=== PATIENT | female | born 1955 | race American Indian/Alaskan Native ===

== ENCOUNTER 2018-06-20 20:24 | Emergency (ER) | payer SELFPAY ==
[2018-06-20] MEDS ORDERED: BOOSTRIX IM ONE (20:53)
[2018-06-20] MEDS ORDERED: ceFAZolin 2 GM in NACL 0.9% 100 ML IV ONE (20:53)
[2018-06-20] MEDS ORDERED: XYLOCAINE 2% INFILTRATI ONE (20:58)
--- NOTE | 2018-06-20 20:58 | Emergency Department Report ---
HPI - General Chief Complaint: Wound/Laceration Time Seen by Provider: 06/20/18 20:50 - HPI HPI: 62-year-old female presents to the emergency department with complaint of a laceration to the left palm that occurred just prior to arrival. The patient was walking down the stairs and slipped to the bottom of the stairs and her hand went across some type of a vent while she was trying to catch herself. She thinks that the lever to open and close the event, or some portion of the vent, cut her hand. She says that the blood will spurt out if pressure is removed. She also has difficulty moving the left ring finger which she says feels numb. She has a past medical history of hypertension. She is unsure of her last tetanus vaccination. She is right-hand dominant. ED Past Medical Hx - Past Medical History Hx Hypertension: Yes - Surgical History Past Surgical History?: No - Social History Smoking Status: Current Every Day Smoker Substance Use Type: None - Medications Home Medications: Home Medications Medication Instructions Recorded Confirmed Last Taken Type HYDROcodone/APAP 5-325 [Tangier 1 each PO Q6HR PRN #12 tablet 06/20/18 Unknown Rx 5/325] Sulfamethoxazole/Trimethoprim 1 each PO BID #14 tablet 06/20/18 Unknown Rx [Bactrim DS TAB] ED Review of Systems ROS: Stated complaint: LEFT HAND LACERATION Other details as noted in HPI Comment: All other systems reviewed and negative Constitutional: denies: chills, fever Eyes: denies: eye pain, vision change ENT: denies: ear pain, throat pain Respiratory: denies: cough, shortness of breath Cardiovascular: denies: chest pain, palpitations Gastrointestinal: denies: abdominal pain, vomiting Genitourinary: denies: dysuria, discharge Musculoskeletal: arthralgia. denies: back pain Skin: denies: rash, lesions Neurological: numbness (left ring finger). denies: headache Physical Exam - Physical Exam Vital Signs: Vital Signs 06/20/18 20:31 Temperature 97.9 F Pulse Rate 78 Respiratory 20 Rate Blood Pressure 161/92 O2 Sat by Pulse 100 Oximetry Physical Exam: GENERAL: The patient is well-developed well-nourished. HEENT: Normocephalic. Atraumatic. Patient has moist mucous membranes. EYES: Extraocular motions are intact. NECK: Supple. Trachea is midline. CHEST/LUNGS: Clear to auscultation. There is no respiratory distress noted. HEART/CARDIOVASCULAR: Regular. There is no tachycardia. There is no obvious murmur. ABDOMEN: Abdomen is soft, nontender. Patient has normal bowel sounds. There is no abdominal distention. SKIN: There is a 3 cm transverse laceration to the left palm. There is Oozing of blood. No foreign body seen. NEURO: The patient is awake, alert, and oriented. The patient is cooperative. The patient has normal speech. MUSCULOSKELETAL: There is tenderness to palpation to the left palm with the patient has a laceration. The patient is unable to flex her left ring finger and the middle finger appears flexed at the PIP joint. Patient has subjective decreased sensation to the distal left ring finger. There is capillary refill less than 2 seconds and radial pulses +2 over 4 to the affected left hand and wrist. ED Course Vital Signs 06/20/18 20:31 Temperature 97.9 F Pulse Rate 78 Respiratory 20 Rate Blood Pressure 161/92 O2 Sat by Pulse 100 Oximetry - Consultations Consultation #1: 06/20/18 22:28 I spoke with the nurse practitioner on-call for the [facility] in [facility], which also does home care and hand injuries. I spoke with her regarding my suspicion of a flexor digitorum tendon laceration along with her left palm laceration. They said that the treatment plan is appropriate which includes approximation of the wound, antibiotics, updating tetanus, a splint, and outpatient follow-up. They say that they are happy to see the patient in [place] but they do not have any local [place] facility that does hand injuries. - Laceration /Wound Repair Left Hand Wound Location: upper extremity (left palm) Wound Length (cm): 3 Wound's Depth, Shape: linear Wound Explored: no foreign body removed Irrigated w/ Saline (ccs): 500 Anesthesia: 1% Lidocaine Volume Anesthetic (ccs): 7 Wound Repaired With: sutures Suture Size/Type: 5:0 Number of Sutures: 8 (Ethilon) Sterile Dressing Applied?: Yes Progress: No obvious complications from this procedure. The patient had palpable pulses and distal capillary refill with her and after the procedure. Neurovascularly intact. ED Medical Decision Making - Radiology Data Radiology results: image reviewed interpreted by me: X-ray of the left hand does not show any fractures, dislocations, foreign bodies - Medical Decision Making Patient presents with a left palmar laceration that occurred just prior to arrival. She also was unable to move the left ring finger, and given the location of the laceration, I have concern for a laceration of the flexor digitorum tendon. Patient was given local anesthesia with lidocaine without epinephrine. The area was washed out with 500 mL of normal saline. I was unable to see any obvious tendon rupture but I did not want to do too much exploration of the wound and/or hand. However no foreign body was seen. X-ray of the left hand did not show any fracture, dislocation, or any foreign body as well. The area was closed with simple interrupted sutures. The area was then cleaned, given a sterile dressing and placed in a volar splint. I spoke with the facility in [facility] that specializes in hand injuries and they agreed that this sounds like something that is safe for outpatient follow-up and discharge from the emergency department. The patient was given IV antibiotics here and tetanus booster. She will go home with antibiotics, pain medication and a referral for both an orthopedic group that specializes in hand injuries, as well as a generalized orthopedist. We had a long discussion regarding signs/symptoms of infection and other reasons to return to the closest emergency department. All of her questions were answered. The patient understands and agrees to the plan. - Differential Diagnosis hand laceration, tendon laceration, fracture, dislocation Critical Care Time: No Critical care attestation.: If time is entered above; I have spent that time in minutes in the direct care of this critically ill patient, excluding procedure time. ED Disposition Clinical Impression: Laceration of left hand Qualifiers: Encounter type: initial encounter Foreign body presence: without foreign body Qualified Code(s): S61.412A - Laceration without foreign body of left hand, initial encounter Disposition: - TO HOME OR SELFCARE Is pt being admited?: No Condition: Stable Instructions: Suture Care (ED), Laceration (ED) Additional Instructions: Please follow up with an orthopedist on Saturday. I have given you a referral for a local general orthopedist, Dr. Ryan. I have also given a referral for a orthopedic group that specializes in hand injuries, [facility]. Return to the emergency Department with any worsening of her symptoms, increased pain, new pain, skin color change to the hand, signs and sym ptoms of infection such as development of fever, discharge or pus, or surrounding redness. The sutures will have to be removed in about 7 days but used to be seen by an orthopedist before this time. Take the antibiotics as prescribed. You have been prescribed a medication that can be sedating. Therefore, this medication cannot be taken prior to driving, working, being responsible for chi ldren, and cannot be mixed with alcohol of any quantity. Prescriptions: HYDROcodone/APAP 5-325 [Tangier 5/325] 1 each PO Q6HR PRN #12 tablet PRN Reason: Pain Sulfamethoxazole/Trimethoprim [Bactrim DS TAB] 1 each PO BID #14 tablet Referrals: ENRIQUE RYAN MD [Staff Physician] - [facility] [Other] - [facility] Time of Disposition: 22:20
[2018-06-20] MEDS ORDERED: MORPHINE IV ONE (21:00)
[2018-06-20] MEDS ORDERED: NACL 0.9% 500 ML IR ONE (21:43)
--- NOTE | 2018-06-20 22:11 | XRay Report ---
FINAL REPORT PROCEDURE: XR HAND 3+V LT TECHNIQUE: Left hand, four views HISTORY: laceration to palm, unable to move ring finger COMPARISON: No prior studies are available for comparison. FINDINGS: There is flexion of the digits, which limits evaluation. No gross fracture or joint dislocation is se en. No radiopaque foreign body is seen. IMPRESSION: Limited study. No acute osseous abnormality is identified
[2018-06-22 12:53] VITALS: BP 161/92
== END 2018-06-20 22:48 | disposition home or self-care (01) ==
LOC: ED 20:24
DX: S61.412A Laceration without foreign body of left hand, initial encounter (principal); I10 Essential (primary) hypertension; F17.200 Nicotine dependence, unspecified, uncomplicated; W18.30XA Fall on same level, unspecified, initial encounter; Y93.89 Activity, other specified; Y92.89 Other specified places as the place of occurrence of the external cause; Y99.8 Other external cause status
CPT/HCPCS: 12002; 73130; 90471; 90715; 96365; 96375; 99283; J0690; J2270